=== PATIENT | female | born 1950 | race Caucasian/White ===

== ENCOUNTER → 2024-07-07 09:56 | Outpatient (REF) | payer MEDICARE, SELFPAY | LOC: WDC 09:56 | PROVIDERS: ATTENDING PHYSICIAN Nurse Practitioner Adult Health | DX: Z12.31 Encounter for screening mammogram for malignant neoplasm of breast (principal) | CPT/HCPCS: 77063; 77067 ==

== ENCOUNTER → 2025-02-15 16:07 | Outpatient (REF) | payer MEDICARE, SELFPAY | LOC: RAD 16:07 | PROVIDERS: ATTENDING PHYSICIAN Nurse Practitioner Adult Health | DX: R07.81 Pleurodynia (principal) | CPT/HCPCS: 71101 ==

== ENCOUNTER → 2025-07-08 18:16 | Outpatient (REF) | payer MEDICARE, SELFPAY | LOC: WDC 18:16 | PROVIDERS: ATTENDING PHYSICIAN Nurse Practitioner Adult Health | DX: Z12.31 Encounter for screening mammogram for malignant neoplasm of breast (principal) | CPT/HCPCS: 77063; 77067 ==